=== PATIENT | male | born 1980 | race African-American/Black ===

== ENCOUNTER 2018-10-18 19:34 | Emergency (ER) | payer OTHER ==
[2018-10-18] MEDS ORDERED: ACETAMINOPHEN 500 MG TABLET (FP) PO ONE (20:00)
--- NOTE | 2018-10-18 20:00 | PDOC ---
Rapid Medical Evaluation Time Seen by Provider: 10/18/18 19:58 Medical Evaluation: Allergies Allergy/AdvReac Type Severity Reaction Status Date / Time hydromorphone HCl Allergy Verified 04/13/16 05:01 [From Dilaudid] ketorolac tromethamine Allergy Verified 04/13/16 05:01 [From Toradol] 10/18/18 19:58 I have performed a brief in-person evaluation of this patient. The patient presents with a chief complaint of: lower back pain s/p heavy lifting Pertinent physical exam findings: No bony tenderness. Gait steady I have ordered the following: tylenol The patient will proceed to the ED for further evaluation. Discharge Disposition - Diagnosis Back pain - Referrals - Patient Instructions - Post Discharge Activity
[2018-10-18 20:01] VITALS: BP 108/59; PULSE 70; TEMP 98.1; BMI 20.7
[2018-10-18] MEDS ORDERED: ACETAMINOPHEN 500 MG TABLET (FP) ONE (21:46)
--- NOTE | 2018-10-18 22:00 | PDOC ---
History of Present Illness - General Chief Complaint: Back Pain Stated Complaint: BACK PAIN Time Seen by Provider: 10/18/18 19:58 - History of Present Illness Initial Comments: 10/18/18 21:57 38-year-old male without comorbidities presents for evaluation of 2 days of lower back pain with bilateral leg radicular symptoms. No loss of bowel bladder function systemic symptoms or Saddle paresthesias Past History - Past Medical History Allergies/Adverse Reactions: Allergies Allergy/AdvReac Type Severity Reaction Status Date / Time hydromorphone HCl Allergy Verified 04/13/16 05:01 [From Dilaudid] ketorolac tromethamine Allergy Verified 04/13/16 05:01 [From Toradol] Home Medications: Ambulatory Orders Cyclobenzaprine HCl [Flexeril 10 mg] 10 mg PO HS PRN #10 tablet 10/18/18 Methylprednisolone [Medrol Dose Sreekanth] 4 mg PO ASDIR #21 tablet 10/18/18 Anemia: No Asthma: No Cancer: No Cardiac Disorders: No CVA: No COPD: No CHF: No Dementia: No Diabetes: No GI Disorders: Yes (pancreatitis) Disorders: No HTN: No Hypercholesterolemia: No Liver Disease: No Seizures: No Thyroid Disease: No - Surgical History Abdominal Surgery: No Appendectomy: No Cardiac Surgery: No Cholecystectomy: No Lung Surgery: No Neurologic Surgery: No Orthopedic Surgery: No - Immunization History Immunization Up to Date: Yes - Suicide/Smoking/Psychosocial Hx Smoking History: Never smoked Have you smoked in the past 12 months: No Number of Cigarettes Smoked Daily: 15 Cigars Per Day: 0 Information on smoking cessation initiated: No 'Breaking Loose' booklet given: 12/04/14 Hx Alcohol Use: No Drug/Substance Use Hx: No Substance Use Type: Alcohol Hx Substance Use Treatment: No Review of Systems - Review of Systems Musculoskeletal: Yes: Back Pain Neurological: Yes: See HPI *Physical Exam - Vital Signs Last Vital Signs Temp Pulse Resp BP Pulse Ox 98.1 F 70 18 108/59 L 100 10/18/18 19:59 10/18/18 19:59 10/18/18 19:59 10/18/18 19:59 10/18/18 19:59 - Physical Exam Comments: 10/18/18 21:57 Lumbar spine skin color and temperature are normal. Range of motion is limited. He has moderate bilateral lumbar musculature spasm and tenderness. No midline tenderness. 5 out of 5 strength in bilateral lower extremity is with bilateral positive straight leg raise test. Neurovascularly intact thighs and calves are soft and nontender Moderate Sedation - Procedure Monitoring Vital Signs: Procedure Monitoring Vital Signs Temperature 98.1 F 10/18/18 19:59 Pulse Rate 70 10/18/18 19:59 Respiratory Rate 18 10/18/18 19:59 Blood Pressure 108/59 L 10/18/18 19:59 O2 Sat by Pulse Oximetry (%) 100 10/18/18 19:59 ED Treatment Course - Medications Given in the ED: ED Medications Discontinued Medications Generic Name Dose Route Start Last Admin Trade Name Freq PRN Reason Stop Dose Admin Acetaminophen 1,000 mg 10/18/18 20:00 10/18/18 21:46 Tylenol - PO 10/18/18 20:01 1,000 mg ONCE ONE Administration Medical Decision Making - Medical Decision Making 10/18/18 21:58 We'll treat this with Medrol Dosepak because of the radicular symptoms and ALLERGY to anti-inflammatories as well as Flexeril orthopedics spine surgery follow-up. *DC/Admit/Observation/Transfer Diagnosis at time of Disposition: Back pain, Lumbar radiculopathy - Discharge Dispostion Disposition: HOME Condition at time of disposition: Stable Decision to Admit order: No - Prescriptions Prescriptions: Cyclobenzaprine HCl [Flexeril 10 mg] 10 mg PO HS PRN #10 tablet PRN Reason: Muscle Spasms Methylprednisolone [Medrol Dose Sreekanth] 4 mg PO ASDIR #21 tablet - Referrals Referrals: Mason Javier MD [Staff Physician] - - Patient Instructions Printed Discharge Instructions: Lumbar Radiculopathy, DI for Lumbar Radiculopathy Additional Instructions: Return to the emergency room for worsening symptoms. Please take the Flexeril and the Medrol Dosepak as directed. Follow-up with orthopedic spine surgery in 1 -2 days for further evaluation and treatment options. No other anti- inflammatories while on the Medrol Dosepak. You may take Tylenol for pain if you require further medication. - Post Discharge Activity
[2018-10-18] MEDS ORDERED: CYCLOBENZAPRINE HCL 10 MG TABLET (FP) PO ONE (22:02)
[2018-10-18] MEDS ORDERED: CYCLOBENZAPRINE HCL 10 MG TABLET (FP) ONE (22:03)
== END 2018-10-18 22:05 | disposition home or self-care (01) ==
LOC: JERFT 19:34
DX: M54.16 Radiculopathy, lumbar region (principal)
CPT/HCPCS: 99281-25